=== PATIENT | female | born 2000 | race Caucasian/White ===

== ENCOUNTER 2019-10-02 07:56 | Emergency (ER) | payer MEDICAID, SELFPAY ==
--- NOTE | 2019-10-02 08:01 | ED.GENADUL_ITS ---
Discharge Plan Disposition Patient Disposition: HOME Condition: Stable Discharge Details Chief Complaint: Laceration Clinical Impression: Puncture wound of hand Primary Care Provider: Capri Armando ED Provider: Antony Alejandre Home Meds and New Rx's Prescriptions: No Action No Known Home Meds RF: 0 Discharge Instructions Instructions: Puncture Wound (ED) Additional Instructions: Keep the area clean and dry. You may apply antibiotic ointment daily. Wear splint as needed, advance activity as tolerated. [id number] Tylenol and/or Motrin as directed for discomfort. Rest, elevate, cool and/or warm compresses every 2 hours for 20 minutes. Please watch for new or worsening symptoms and return to the ER for any concerns. I have given you the name and number of our local orthopedic, I do recommend following up the next 5-7 days if your symptoms are not significantly improving Referrals: Negrito Arguello MD [ [facility] STAFF PHYSICIAN] - Medical Decision Making Patient presents with a right hand, dominant, injury that she just sustained. Patient presented anxious, after quickly performing examination my plan was to perform a localized block and then reassess. Using a total of 6 cc 1% lidocaine, I infused locally along the palmar aspect. Patient tolerated well. Upon reevaluation I was then able to get additional history. This was a large gauge sewing needle that they had used to sew boots. The nephew had stuck this into the telephone pole, the eye of the needle was sticking out of the telephone pole. Once they removed the needle, it was completely intact. Upon reevaluation after the wound was thoroughly soaked, cleaned, irrigated, I could visualize a very distinct palmar laceration, mid palm, between the third and fourth digit. There is no break of the skin along the dorsal aspect. Given this is a puncture wound-laceration, will not approximate. Low suspicion for foreign body. Will obtain x-ray to rule out any potential bony involvement or foreign body. We did obtain her tetanus status, last performed in 2010. Tetanus to be updated today. X-ray read by me and then confirmed through radiology as negative. After the wound was thoroughly soaked, cleaned, irrigated, a antibiotic dressing was applied and a hand-based splint was then applied. Discussed x-ray findings with patient. She is relieved and has no additional questions or concerns. We discussed signs and symptoms of infection and the importance of returning to the ER. Given her slightly altered sensation I will give her the name and number of our local orthopedic provider for prompt outpatient reevaluation. Patient is comfortable discharge and has no additional questions or concerns. Patient is otherwise healthy, will not initiate prophylactic antibiotic therapy HPI General Mode of arrival: ambulatory . Date/Time Provider Initiated Documentation: 10/02/19 08:01 . Limitations to Documentation: no limitations . Information obtained by: patient . HPI Narrative: This is a 19-year-old female who is right-hand dominant, history of anxiety, presents for a right hand injury that she sustained just prior to arrival. She reports that she smacked a telephone pole with her open palm, there was something protruding from a telephone pole and she sustained a laceration/injury to the palm of her hand. She presents with a friend, the friend reports that their family had stuck a sewing needle in a telephone pole, the telephone pole was on their property. She reports moderate pain throughout the entire hand, the needle did not break the skin upon the dorsal aspect of the hand. She reports some tingling to her first, second, third digit. Normal sensation to her fourth and fifth. She is unsure of her last tetanus shot. She has no additional questions or concerns. Denies any pain in her wrist. She reports moderate anxiety, needing her friend to come back with her. Related Data Home Medications Medication Instructions Recorded Confirmed Unknown [No Known Home Meds] 10/02/19 10/02/19 Allergies Allergy/AdvReac Type Severity Reaction Status Date / Time shellfish derived Allergy Anaphylaxsi Unverified 10/02/19 08:01 s Review of Systems Constitutional Constitutional: Denies weakness Musculoskeletal Musculoskeletal: Denies arthralgias, Denies numbness and Reports tingling Integumentary/Breasts Skin/Breast: Denies rash Neurologic Neurologic: Denies numbness, Reports tingling and Denies weakness [facility] Social History Smoking/Tobacco Use Status: Current every day Tobacco Type: cigarettes Alcohol Intake: never Drug use: Occasionally Substance use type: marijuana Do you feel safe at home: Yes Do you feel safe in your relationship?: Yes Exam Const General: cooperative, healthy appearing, comfortable, no acute distress and anxious Orientation: alert and awake HENPR Head: normal to inspection, normocephalic and atraumatic Mouth: moist mucous membranes Eyes Conjunctivae: conjunctivae normal Neck Neck: normal visual inspection, trachea midline and supple Resp Effort & Inspection: normal respiratory effort and able to speak in complete sentences Cardio Rate: regular rate Rhythm: regular rhythm Skin General skin exam: no rashes or lesions noted Neuro General: patient alert, patient awake, moves all extremities and no focal motor deficits Sensory Exam: no sensory deficits noted Extrem Right upper extremity: full ROM and normal capillary refill Hand/finger images: 1. 0.5 cm well approximated laceration. No obvious foreign body. Bleeding controlled. Patient is able to feel me touch all 5 digits however reports that digit 1-2-3 feels slightly decreased overall. Motor function is normal. Normal capillary refill in all digits. Psych Appearance: grossly normal Mental Status: mental status grossly normal
[2019-10-02 08:02] VITALS: BP 101/65; PULSE 71; RESP 20; TEMP 36.9; O2SAT 100
--- NOTE | 2019-10-02 08:15 | DI.RAD_ITS ---
EXAM: XR HAND RT COMPLETE CLINICAL HISTORY: Struck telephone pole, laceration to palm area TECHNIQUE: COMPARISON: No exams were available for comparison FINDINGS: Three views were obtained. No fracture or foreign body identified. IMPRESSION:
== END 2019-10-02 09:27 | disposition home or self-care (01) ==
PROVIDERS: Emergency Provider Physician Assistant; PCP Nurse Practitioner Family
DX: S61.431A Puncture wound without foreign body of right hand, initial encounter (principal); W27.3XXA Contact with needle (sewing), initial encounter
CPT/HCPCS: 29125; 81025; 90471; 99283; 73130; L3807

== ENCOUNTER 2020-03-31 16:56 | Outpatient (REF) | payer MEDICAID, SELFPAY ==
[2020-04-01 15:11] LABS: COVID-19 RT-PCR UVMMC Result Negative (Negative)
== END 2020-03-31 17:16 ==
LOC: NCHCN 16:56
PROVIDERS: PCP Nurse Practitioner Family; Visit Provider Internal Medicine
DX: Z20.822 Contact with and (suspected) exposure to COVID-19 (principal)
CPT/HCPCS: U0003